=== PATIENT | female | born 1965 | race Caucasian/White ===

== ENCOUNTER 2022-11-08 21:19 | Emergency (ER) | payer OTHER ==
[~2022-11-08] VITALS: Ht 152.4 cm; Wt 58.1 kg
[2022-11-08 21:28] VITALS: BP 210/119
[2022-11-08 21:46] LABS: BASOPHILS ABSOLUTE AUTO 0.05 K/mm3 (0.00-0.23); BASOPHILS PERCENT AUTO 1 % (0-2); EOSINOPHILS ABSOLUTE AUTO 0.29 K/mm3 (0.00-0.68); EOSINOPHILS PERCENT AUTO 3 % (0-6); Hematocrit 39.9 % (33.0-51.0); Hemoglobin 13.7 g/dL (11.5-16.0); IMMATURE GRAN ABSOLUTE AUTO 0.02 K/mm3 (0.00-0.10); IMMATURE GRAN PERCENT AUTO 0 % (0-1); LYMPHOCYTES ABSOLUTE AUTO 3.84 K/mm3 (0.84-5.20); LYMPHOCYTES PERCENT AUTO 45 % (21-46); MONOCYTES ABSOLUTE AUTO 0.97 K/mm3 (0.16-1.47); MONOCYTES PERCENT AUTO 12 % (4-13); Mean Corpuscular HGB 34.1 pg (26.0-34.0); Mean Corpuscular HGB Conc 34.3 g/dL (31.5-36.5); Mean Corpuscular Volume 99 fL (80-100); Mean Platelet Volume 10.4 fL (9.1-12.4); NEUTROPHILS ABSOLUTE AUTO 3.29 K/mm3 (1.96-9.15); NEUTROPHILS PERCENT AUTO 39 % (41-73); Platelet Count 288 K/mm3 (150-400); RDW Coefficient Variation 12.8 % (11.7-14.2); RDW Standard Deviation 46.9 fL (35.1-46.3); Red Blood Cell Count 4.02 M/mm3 (3.80-5.20); White Blood Cell Count 8.46 K/mm3 (4.00-11.30)
[2022-11-08 22:04] LABS: Albumin, Blood 3.7 g/dL (3.4-5.0); Bilirubin, Total 0.4 mg/dL (0.1-1.0); Bun/Creatinine Ratio 17.1 (12.0-20.0); Calcium, Blood 8.5 mg/dL (8.5-10.1); Creatinine, Blood 0.7 mg/dL (0.40-1.00); Globulin, Blood 3.6 g/dL (2.2-4.0); Potassium, Blood 4.5 mmol/L (3.5-5.5); Total Protein, Blood 7.3 g/dL (6.4-8.2)
== END 2022-11-08 23:15 | disposition home or self-care (01) ==
LOC: ER 21:19
PROVIDERS: Student in an Organized Health Care Education/Training Program
DX: R07.89 Other chest pain (principal)
CPT/HCPCS: 71046; 80053; 84484; 85025; 93005; 93010; 99285-25

== ENCOUNTER 2023-04-28 23:17 | Emergency (ER) | payer OTHER ==
[~2023-04-28] VITALS: Ht 152.4 cm; Wt 59.0 kg
[2023-04-29 01:00] VITALS: BP 158/81
== END 2023-04-29 01:22 | disposition home or self-care (01) ==
LOC: ER 23:17
DX: I10 Essential (primary) hypertension (principal)
CPT/HCPCS: 96374; 96375; 99284-25; J0780; J1885

== ENCOUNTER 2023-05-08 10:48 | Emergency (ER) | payer OTHER ==
[~2023-05-08] VITALS: Ht 152.4 cm; Wt 59.0 kg
[2023-05-08 11:43] LABS: BASOPHILS ABSOLUTE AUTO 0.03 K/mm3 (0.00-0.23); BASOPHILS PERCENT AUTO 1 % (0-2); EOSINOPHILS PERCENT AUTO 2 % (0-6); Hematocrit 43.1 % (33.0-51.0); Hemoglobin 15.3 g/dL (11.5-16.0); IMMATURE GRAN ABSOLUTE AUTO 0.01 K/mm3 (0.00-0.10); IMMATURE GRAN PERCENT AUTO 0 % (0-1); LYMPHOCYTES ABSOLUTE AUTO 2.73 K/mm3 (0.84-5.20); LYMPHOCYTES PERCENT AUTO 41 % (21-46); MONOCYTES ABSOLUTE AUTO 0.63 K/mm3 (0.16-1.47); MONOCYTES PERCENT AUTO 10 % (4-13); Mean Corpuscular HGB 33.7 pg (26.0-34.0); Mean Corpuscular HGB Conc 35.5 g/dL (31.5-36.5); Mean Corpuscular Volume 95 fL (80-100); Mean Platelet Volume 10.3 fL (9.1-12.4); NEUTROPHILS ABSOLUTE AUTO 3.13 K/mm3 (1.96-9.15); NEUTROPHILS PERCENT AUTO 47 % (41-73); Platelet Count 345 K/mm3 (150-400); RDW Coefficient Variation 12.1 % (11.7-14.2); RDW Standard Deviation 42.3 fL (35.1-46.3); Red Blood Cell Count 4.54 M/mm3 (3.80-5.20); White Blood Cell Count 6.63 K/mm3 (4.00-11.30)
[2023-05-08 12:07] LABS: Albumin, Blood 4.3 g/dL (3.4-5.0); Albumin/Globulin Ratio 1.2 (0.8-1.8); Bilirubin, Total 0.8 mg/dL (0.1-1.0); Bun/Creatinine Ratio 21.2 (12.0-20.0); Calcium, Blood 9.8 mg/dL (8.5-10.1); Creatinine, Blood 0.61 mg/dL (0.40-1.00); Globulin, Blood 3.7 g/dL (2.2-4.0); Potassium, Blood 4.7 mmol/L (3.5-5.5)
[2023-05-08 13:32] LABS: Source, Urine Clean Catch
[2023-05-08 13:45] LABS: Appearance, Urine Clear (Clear); Bilirubin, Urine Neg (Neg); Blood, Urine 1+ (Neg); Color, Urine Yellow (P-Yellow); Glucose Qualitative, Urine Neg (Neg); Ketones, Urine 3+ (Neg); Leukocyte Esterase, Urine Neg (Neg); Nitrite, Urine Neg (Neg); Protein, Urine 2+ (Neg); Specific Gravity, Urine 1.025 (1.003-1.022); Urobilinogen, Urine NORM (Normal)
[2023-05-08 13:53] LABS: Bacteria Many /hpf; Calcium Oxalate Crystals Rare /hpf; Red Blood Cells, Urine 0-2 /hpf (0-2); Squamous Epithelial Cells Mod /hpf (Few); White Blood Cells, Urine 0-2 /hpf (0-5)
[2023-05-08] MEDS ORDERED: IMITREX50 M2 PO (13:57)
[2023-05-08] MEDS ORDERED: ROSUVASTATIN CAL5 MG PO (13:58)
[2023-05-08] MEDS ORDERED: HYDCHL25 PO (13:58)
[2023-05-08] MEDS ORDERED: HYDROcodone 5-APAP 325 TAB PO ONE (14:25)
[2023-05-08 14:39] VITALS: BP 186/118
== END 2023-05-08 14:44 | disposition home or self-care (01) ==
LOC: ER 10:48
PROVIDERS: Student in an Organized Health Care Education/Training Program
DX: E87.1 Hypo-osmolality and hyponatremia (principal); I10 Essential (primary) hypertension; F17.200 Nicotine dependence, unspecified, uncomplicated; Z79.899 Other long term (current) drug therapy
CPT/HCPCS: 70450; 80053; 81001; 85025; 87086; 99284-25; A9270

== ENCOUNTER 2023-05-23 17:18 | Inpatient (IN) | payer OTHER ==
[~2023-05-23] VITALS: Ht 152.4 cm; Wt 60.3 kg
[~2023-05-23 17:18] MED LIST: HYDCHL25 PO; IMITREX50 M2 PO; Lactated Ringer's 1,000 ML IV SCH; ROSUVASTATIN CAL5 MG PO
[2023-05-23 17:54] LABS: Hematocrit 41.9 % (33.0-51.0); Hemoglobin 14.4 g/dL (11.5-16.0); Mean Corpuscular HGB 33.3 pg (26.0-34.0); Mean Corpuscular HGB Conc 34.4 g/dL (31.5-36.5); Mean Corpuscular Volume 97 fL (80-100); Mean Platelet Volume 9.7 fL (9.1-12.4); Platelet Count 394 K/mm3 (150-400); RDW Coefficient Variation 12.4 % (11.7-14.2); Red Blood Cell Count 4.32 M/mm3 (3.80-5.20); White Blood Cell Count 8.75 K/mm3 (4.00-11.30)
[2023-05-23 18:12] LABS: Albumin, Blood 4.4 g/dL (3.4-5.0); Albumin/Globulin Ratio 1.1 (0.8-1.8); Bilirubin, Total 0.5 mg/dL (0.1-1.0); Bun/Creatinine Ratio 26.8 (12.0-20.0); Creatinine, Blood 0.71 mg/dL (0.40-1.00); Potassium, Blood 4.1 mmol/L (3.5-5.5); Total Protein, Blood 8.4 g/dL (6.4-8.2)
[2023-05-23 18:21] LABS: BASOPHILS PERCENT MAN 0 % (0-2); EOSINOPHILS ABSOLUTE MAN 0.26 K/mm3 (0.00-0.68); EOSINOPHILS PERCENT MAN 3 % (0-6); LYMPHOCYTES % ATYPICAL MANUAL 2 % (0-0); LYMPHOCYTES PERCENT MAN 38 % (21-46); MONOCYTES ABSOLUTE MAN 0.35 K/mm3 (0.16-1.47); MONOCYTES PERCENT MAN 4 % (4-13); NEUTROPHILS ABSOLUTE MAN 4.63 K/mm3 (1.96-9.15); SEG NEUTROPHILS PERCENT MAN 53 % (41-73); TOTAL CELLS COUNTED 100
[2023-05-23] MEDS ORDERED: Acetaminophen 325 MG TABLET PO ONE (21:15)
[2023-05-23] MEDS ORDERED: Dexamethasone Sod Phos 10 MG/ML 1ML VIAL IV ONE (21:15)
[2023-05-23] MEDS ORDERED: HydrALAZINE HCl 20 MG / ML 1ML Vial IV PRN (23:20)
[2023-05-23] MEDS ORDERED: FLU VACC QS2023-24(6MOS UP)/PF 60 MCG/0.5 ML SYRINGE IM ONE (23:20)
[2023-05-23] MEDS ORDERED: Ondansetron HCl 2 MG / ML 2ML Vial IV PRN (23:20)
[2023-05-23] MEDS ORDERED: Acetaminophen 325 MG TABLET PO PRN (23:20)
[2023-05-24] VITALS (12 sets, daily range): BP systolic 113–167; BP diastolic 70–99
[2023-05-24 04:04] LABS: BASOPHILS ABSOLUTE AUTO 0.01 K/mm3 (0.00-0.23); BASOPHILS PERCENT AUTO 0 % (0-2); EOSINOPHILS ABSOLUTE AUTO 0.02 K/mm3 (0.00-0.68); EOSINOPHILS PERCENT AUTO 0 % (0-6); Hemoglobin 14.3 g/dL (11.5-16.0); IMMATURE GRAN ABSOLUTE AUTO 0.01 K/mm3 (0.00-0.10); IMMATURE GRAN PERCENT AUTO 0 % (0-1); LYMPHOCYTES ABSOLUTE AUTO 1.13 K/mm3 (0.84-5.20); LYMPHOCYTES PERCENT AUTO 19 % (21-46); MONOCYTES ABSOLUTE AUTO 0.07 K/mm3 (0.16-1.47); MONOCYTES PERCENT AUTO 1 % (4-13); Mean Corpuscular HGB 32.7 pg (26.0-34.0); Mean Corpuscular HGB Conc 34.9 g/dL (31.5-36.5); Mean Corpuscular Volume 94 fL (80-100); NEUTROPHILS ABSOLUTE AUTO 4.64 K/mm3 (1.96-9.15); NEUTROPHILS PERCENT AUTO 79 % (41-73); Platelet Count 423 K/mm3 (150-400); RDW Coefficient Variation 12.1 % (11.7-14.2); RDW Standard Deviation 41.8 fL (35.1-46.3); Red Blood Cell Count 4.37 M/mm3 (3.80-5.20); White Blood Cell Count 5.88 K/mm3 (4.00-11.30)
[2023-05-24 04:12] LABS: International Normalized Ratio 0.96; Prothrombin Time Results 10.1 Sec (9.7-11.5)
[2023-05-24 04:32] LABS: Albumin, Blood 4.4 g/dL (3.4-5.0); Albumin/Globulin Ratio 1.2 (0.8-1.8); Bilirubin, Total 0.6 mg/dL (0.1-1.0); Bun/Creatinine Ratio 28.4 (12.0-20.0); Calcium, Blood 9.9 mg/dL (8.5-10.1); Creatinine, Blood 0.53 mg/dL (0.40-1.00); Globulin, Blood 3.6 g/dL (2.2-4.0); Magnesium, Blood 2.4 mg/dL (1.6-2.4); Potassium, Blood 4.2 mmol/L (3.5-5.5)
--- NOTE | 2023-05-24 06:26 | NUR ---
SHIFT SUMMARY PT ARRIVED TO UNIT FROM ER AT APPROXIMATELY 0029. SHE STOOD AND PIVOTED TO BED FROM [facility], SHE IS FAST MOVING AND UNSTEADY ON HER FEET, PT REMINDED TO MOVE SLOWLY AND SHE FOLLOWED DIRECTION WELL. PT HAS ATAXIA. SHE IS ALERT AND ORIENTED X 4, COOPERATIVE WITH CARE AND ABLE TO MAKE NEEDS KNOWN. PERRLA, BILATERAL NYSTAGMUS. PT SAID IT IS HARD FOR HER TO FOCUS HER VISION AND HAS INTERMITTENT DIZZINESS. SHE COMPLAINS OF 7/10 HEADACHE BUT SAID THAT IT IS BEARABLE AND HASN'T WANTED ANY TYLENOL SINCE SHE'S BEEN HERE, SHE WAS MEDICATED WITH TYLENOL IN ER BEFORE SHE CAME TO THE FLOOR. SHE DID COMPLAIN OF NAUSEA WHEN SHE FIRST ARRIVED AND WAS MEDICATED PER EMAR. PER ER REPORT, PT WAS HYPERTENSIVE IN THE ER. HYDRALAZINE ORDERED FOR SBP >180, PT'S SBP HAS BEEN BELOW 180 ALL SHIFT SO HYDRALAZINE WASN'T GIVEN. PT IS NPO PER ORDERS. Q6 CBG PERFORMED PER ORDERS. Q4 NEURO CHECKS PERFORMED PER ORDERS. NO CHANGES TO NEURO ASSESSMENT SINCE PT ARRIVED TO UNIT. 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 SYMMETRICAL SMILE WITH NO DROPPING ON EITHER SIDE, ABLE TO STICK TONGUE OUT AND DOES NOT DEVIATE TO EITHER SIDE. NO DOWNWARD DRIFTING OF EITHER ARM WHEN SHE LIFTS THEM BOTH UP. HOB IS ELEVATED PER ORDERS. PT WAS EDUCATED TO USE CALL LIGHT WHENEVER SHE NEEDS TO GET UP SO AT LEAST ONE PERSON CAN BE IN THE ROOM WITH HER TO ASSIST HER, PT USES CALL LIGHT APPROPRIATELY. OF NOW, PT IS DUE TO HAVE MRI PERFORMED TODAY. PT IS ON WAITING LIST TO TRANSFER TO [facility]. PT CURRENTLY SLEEPING IN BED WITH UNLABORED BREATHING, CALL LIGHT WITHIN REACH.
[2023-05-24] MEDS ORDERED: LOSARTAN POTASS25 M2 PO (08:19)
[2023-05-24] MEDS ORDERED: SUMAtriptan succinate 50 MG Tab PO PRN (08:50)
[2023-05-24] MEDS ORDERED: Dexamethasone Sod Phos 10 MG/ML 1ML VIAL IV SCH (09:00)
[2023-05-24] MEDS ORDERED: Losartan Potassium 25 MG Tab PO SCH (09:00)
[2023-05-24] MEDS ORDERED: HydroCHLOROthiazide 25 mg Tab PO SCH (09:00)
[2023-05-24] MEDS ORDERED: Pravastatin Sodium 20 MG Tab PO SCH (09:00)
--- NOTE | 2023-05-24 17:45 | NUR ---
SHIFT SUMMARY; ASSUMED CARE AT 0700. A/A/OX4, Q 4 RASHAWN CHECKS, NYSTAGMAS BILATERALLY. MOVES SELF ON GURNEY, 1 PERSON ASSIST TO WHEELCHAIR TODAY FOR CT/MRI. UNSTEADY, UNCORDINATED GAIT. VSS, HOLD PO MEDS PER DR. BAUTISTA. PLAN OF CARE UPDATED TO PT AND SO IN EVENING BY DR. BAUTISTA. PLAN FOR PELVIC MRI TOMORROW. NO ACUTE MEDICAL CHANGES, WILL CONTINUE TO MONITOR AND TREAT UNTIL CHANGE OF SHIFT.
--- NOTE | 2023-05-24 21:19 | NUR ---
ASSUME CARE PT RESTING COMFORTABLY IN BED. PT REPORTS NO PAIN AT THIS TIME, BUT STATED HAS HAD A PROBLEM WITH HEADACHES IN RECENT HISTORY. PT IN POSITIVE MOOD, BUT DOES STATE WISHING TO NOT BE IN THE HOSPITAL, IS LOOKING FORWARD TO FINISHING TESTS TO RETURN HOME. PLAN OF CARE REVIEWED WITH PATIENT AND PT VERBALIZING UNDERSTANDING.
[2023-05-25 03:55] VITALS: BP 133/78
--- NOTE | 2023-05-25 06:07 | NUR ---
SHIFT SUMMARY PT COUGHING FREQUENTLY WHEN AWAKE, PT STATES BELIEVING IT IS RELATED TO NOT BEING ABLE TO SMOKE WHILE IN HOSPITAL. PT ABLE TO REST COMFORTABLY IN BED OTHERWISE. PT UP TO BATHROOM TWICE OVERNIGHT, SLIGHT DYSPNEA ON EXERTION ON RETURN TO BED. PT REMAINS ON ROOM AIR, PIV IN PLACE WITH NO GTTS.
[2023-05-25 07:44] LABS: BASOPHILS ABSOLUTE AUTO 0.01 K/mm3 (0.00-0.23); BASOPHILS PERCENT AUTO 0 % (0-2); EOSINOPHILS PERCENT AUTO 0 % (0-6); Hematocrit 38.8 % (33.0-51.0); Hemoglobin 13.8 g/dL (11.5-16.0); IMMATURE GRAN ABSOLUTE AUTO 0.03 K/mm3 (0.00-0.10); IMMATURE GRAN PERCENT AUTO 0 % (0-1); LYMPHOCYTES PERCENT AUTO 26 % (21-46); MONOCYTES ABSOLUTE AUTO 0.79 K/mm3 (0.16-1.47); MONOCYTES PERCENT AUTO 9 % (4-13); Mean Corpuscular HGB 33.6 pg (26.0-34.0); Mean Corpuscular HGB Conc 35.6 g/dL (31.5-36.5); Mean Corpuscular Volume 94 fL (80-100); Mean Platelet Volume 9.8 fL (9.1-12.4); NEUTROPHILS ABSOLUTE AUTO 5.99 K/mm3 (1.96-9.15); NEUTROPHILS PERCENT AUTO 65 % (41-73); Platelet Count 427 K/mm3 (150-400); RDW Coefficient Variation 12.4 % (11.7-14.2); RDW Standard Deviation 42.9 fL (35.1-46.3); Red Blood Cell Count 4.11 M/mm3 (3.80-5.20); White Blood Cell Count 9.22 K/mm3 (4.00-11.30)
[2023-05-25 08:02] LABS: Bun/Creatinine Ratio 29.7 (12.0-20.0); Calcium, Blood 9.9 mg/dL (8.5-10.1); Creatinine, Blood 0.57 mg/dL (0.40-1.00); Potassium, Blood 4.3 mmol/L (3.5-5.5)
[2023-05-25 08:19] VITALS: BP 147/84
[2023-05-25] MEDS ORDERED: AmLODIPine Besylate 5 MG Tab PO SCH (09:00)
--- NOTE | 2023-05-25 09:12 | NUR ---
UPDATE DURING MED PASS AT 0900, PT ENCOURAGED TO ALERT STAFF WHEN NEEDING TO GET UP IN ROOM. PT EPRESSED THAT SHE FELT CONFIDENT TO BE UP ON HER OWN. THIS RN EDUCATED PT ON FALL RISK WITH THE CURRENT STATUS OF HER MEDICAL CONDITION. PT CONTINUED TO EXPRESS THAT SHE IS WAS GOING TO GET UP ON HER OWN.
--- NOTE | 2023-05-25 11:16 | NUR ---
THIS RN REVIEWED NURSING 0800 STUDENT SHIFT ASSESSMENT, IV ASSESSMENT, EDUCATION, AND CARE MANAGEMENT CHARTING AND AGREED WITH STUDENT ASSESSMENTS.
[2023-05-25 12:00] VITALS: BP 150/93
[2023-05-25 16:11] VITALS: BP 147/72
--- NOTE | 2023-05-25 18:28 | NUR ---
SHIFT SUMMARY PT A/OX4 AND COOPERATIVE OF MOST CARE. PT ABLE TO EXPRESS NEEDS AND CALLS APPROPIATE. PT ANXIOUS DURING SHIFT ASKING ABOUT AN MRI THAT WAS SUPPOSED TO HAPPEN TODAY. MD CONTACTED NO ORDER FOR MRI WAS PLACED, MD TO CONTACT IMAGING FOR SPECIFIC ORDER. PT INDEPENDENT IN ROOM, PT WAS EDUCATED ABOUT FALL RISK SAFETY AND ASKED TO CONTACT STAFF FOR ASSISTANCE WHEN NEEDING TO GET UP. PT STATED EARLY IN SHIFT THAT SHE WOULD GET UP ON HER OWN,SEE PREVIOUS NOTES. PT STILL AWAITING COBR TRANSFER. PT REPORTED THAT HER VISION IS STILL BLURRY BUT IMPROVING. NO REPORT OF HEADACHE, N/V, OR DIZZINESS. NO ACUTE EVENTS DURING SHIFT.
[2023-05-25 19:45] VITALS: BP 155/82
[2023-05-25 23:53] VITALS: BP 125/70
[2023-05-26 03:44] LABS: BASOPHILS ABSOLUTE AUTO 0.01 K/mm3 (0.00-0.23); BASOPHILS PERCENT AUTO 0 % (0-2); EOSINOPHILS PERCENT AUTO 0 % (0-6); Hematocrit 38.8 % (33.0-51.0); Hemoglobin 13.1 g/dL (11.5-16.0); IMMATURE GRAN ABSOLUTE AUTO 0.02 K/mm3 (0.00-0.10); IMMATURE GRAN PERCENT AUTO 0 % (0-1); LYMPHOCYTES ABSOLUTE AUTO 1.66 K/mm3 (0.84-5.20); LYMPHOCYTES PERCENT AUTO 21 % (21-46); MONOCYTES ABSOLUTE AUTO 0.27 K/mm3 (0.16-1.47); MONOCYTES PERCENT AUTO 4 % (4-13); Mean Corpuscular HGB 32.8 pg (26.0-34.0); Mean Corpuscular HGB Conc 33.8 g/dL (31.5-36.5); Mean Corpuscular Volume 97 fL (80-100); NEUTROPHILS ABSOLUTE AUTO 5.83 K/mm3 (1.96-9.15); NEUTROPHILS PERCENT AUTO 75 % (41-73); Platelet Count 413 K/mm3 (150-400); RDW Coefficient Variation 12.4 % (11.7-14.2); RDW Standard Deviation 44.3 fL (35.1-46.3); White Blood Cell Count 7.79 K/mm3 (4.00-11.30)
[2023-05-26 04:04] LABS: Bun/Creatinine Ratio 38.4 (12.0-20.0); Calcium, Blood 9.3 mg/dL (8.5-10.1); Creatinine, Blood 0.63 mg/dL (0.40-1.00); Potassium, Blood 4.5 mmol/L (3.5-5.5)
[2023-05-26 04:38] VITALS: BP 140/85
--- NOTE | 2023-05-26 05:34 | NUR ---
PT SUMMARY: PT REMAINS ALERT ADN ORIENTED X4, NO CHANGES ON NEUROS. CONSTANT HEADACHES AND BLURRY VISION STILL PRESENT, PT WAS MEDICATED TWICE WITH TYLENOL, PT REFUSED IMITREX PT REPORTS TYLENOL IS MORE EFFECTIVE, VITALS HRR SR 60-70'S, SBP 120-140'S, SATS ABOVE 95% ON RA, AFEBRILE. PT HAS BEEN GETTING UP INDE[ENDENTLY TO THE BATHROOM WITH NOS ISSUES. PT USES CALL LIGHTS APPROPRIATELY. PT STILL AWAITING TO GET COBRA TRANSFERRED, MRI OF PELVIS TO BE DONE TODAY. NO OTHER ISSUES REPORTED T/O SHIFT. PT CALLS APPROPRIATELY, WILL REPORT TO ONCOMING SHIFT
[2023-05-26 07:54] VITALS: BP 145/102
[2023-05-26 09:38] VITALS: BP 145/102
--- NOTE | 2023-05-26 11:18 | NUR ---
REPORT CALLED TO [facility] AT 1110. TRANSPORT FOR TRANSFER ARRIVED AND PT LEFT AT 1055. THIS RN GAVE EMS STAFF REPORT AT 1050. PT BELOGINGS IN BAGS AND TRANSFERED WITH PT.
== END 2023-05-26 10:55 | disposition short-term general hospital (02) | DRG 54 ==
LOC: ER 17:18 → PCU 17:19
PROVIDERS: Internal Medicine; Student in an Organized Health Care Education/Training Program; ADMIT Student in an Organized Health Care Education/Training Program
DX: C71.9 Malignant neoplasm of brain, unspecified (principal); G93.6 Cerebral edema; F17.210 Nicotine dependence, cigarettes, uncomplicated; N83.8 Other noninflammatory disorders of ovary, fallopian tube and broad ligament; I10 Essential (primary) hypertension; E78.5 Hyperlipidemia, unspecified; F10.20 Alcohol dependence, uncomplicated; F12.90 Cannabis use, unspecified, uncomplicated; Z98.890 Other specified postprocedural states; Z79.899 Other long term (current) drug therapy
CPT/HCPCS: 36415; 70450; 70460; 70553; 71260; 74177; 76830; 76856; 80048; 80053; 82947; 83735; 85025; 85610; 93005; 93010; 94762; 96374-59; 96375; 96376; 99285-25; A9270; A9579; G0378; J1100; J2405; Q9967

== ENCOUNTER → 2024-07-16 | Outpatient (CLI) | payer OTHER ==
[~2024-07-16] MED LIST changes: +LOSARTAN POTASS25 M2 PO; -Lactated Ringer's 1,000 ML IV SCH
[2024-07-23 13:06] LABS: HPV HIGH RISK BY TMA Not Detected; HPV SOURCE Cervical
== END ==
LOC: LAB 16:10 → LAB SHORT 16:10
PROVIDERS: Physician Assistant
DX: Z01.419 Encounter for gynecological examination (general) (routine) without abnormal findings (principal)
CPT/HCPCS: 87624; G0123